=== PATIENT | male | born 1940 | race Caucasian/White ===

== ENCOUNTER 2019-02-08 15:01 | Emergency (ER) | payer MEDICARE, BC, OTHER ==
[~2019-02-08] VITALS: Ht 185.4 cm; Wt 75.0 kg
[~2019-02-08 15:01] MED LIST: BENEPOW7 PO; BENI5TAB3 PO; COUM1TAB17 PO; K-TA10TA2 PO; MAGN250T9 PO; ONE A DAY VITAMIN PO; PANT40TA3 PO; PROBCAP4 PO; STOOL SOFTNER PO; VITA2000 PO; [UNRECOGNIZED DRUG - OTHER] PO
[2019-02-08] MEDS ORDERED: CALC200T3 PO (15:19)
[2019-02-08] MEDS ORDERED: AMLO5TAB6 PO (15:19)
[2019-02-08] MEDS ORDERED: ADACEL/BOOSTRIX VACCINE (DIPHTH/PERTUSS/ACELL/TETANUS)0.5ML SYR (90715) IM ONE (15:45)
[2019-02-08] MEDS ORDERED: DERMABOND TOPICAL SKIN ADHESIVE TOP ONE (17:00)
[2019-02-08 17:23] VITALS: BP 178/99
--- NOTE | 2019-02-09 07:14 | REP ---
REASON: Trauma. PRIORS: None. 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 Degenerative disc space narrowing is seen at every level. Anterior and posterior osteophytic ridging is seen at every level but particularly C5-6 and C6-7. Vertebral body height and alignment is within normal limits. The facet joints are well aligned bilaterally. Degenerative facet and uncovertebral joint changes are present at every level bilaterally. There is no evidence of an acute fracture. There is no abnormal paraspinal soft-tissue swelling. IMPRESSION:Chronic changes. No acute fracture. Electronically Signed by Bogdan Mason DO 02/09/2019 09:16 A
--- NOTE | 2019-02-09 07:15 | REP ---
REASON FOR EXAM: Trauma. PRIORS: None. The ventricles and sulci are within normal limits for the patient's age of 79 years. Patchy diffuse lucency is seen throughout the deep cerebral white matter. There is no shift of the midline structures. There are no extra-axial fluid collections. There is no evidence of mass effect. The posterior fossa is within normal limits for the patient's age. There is no skull fracture. 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 Electronically Signed by Bogdan Mason DO 02/09/2019 09:16 A
[2019-02-09] MEDS ORDERED: ASPI81TA85 PO (10:50)
== END 2019-02-08 17:45 | disposition home or self-care (01) ==
LOC: EDUNIT# 15:01 → M ED 15:01 → EDBD 15:01 → M ED 17:45
DX: S09.90XA Unspecified injury of head, initial encounter (principal); S01.81XA Laceration without foreign body of other part of head, initial encounter; W01.0XXA Fall on same level from slipping, tripping and stumbling without subsequent striking against object, initial encounter; Y92.481 Parking lot as the place of occurrence of the external cause; K21.9 Gastro-esophageal reflux disease without esophagitis; Z79.899 Other long term (current) drug therapy; Z79.82 Long term (current) use of aspirin

== ENCOUNTER 2019-02-09 10:29 | Emergency (ER) | payer MEDICARE, BC, OTHER ==
[~2019-02-09] VITALS: Ht 185.4 cm; Wt 76.2 kg
[~2019-02-09 10:29] MED LIST changes: +AMLO5TAB6 PO; +CALC200T3 PO
[2019-02-09] MEDS ORDERED: ASPI81TA85 PO (10:50)
[2019-02-09 12:24] VITALS: BP 160/84
== END 2019-02-09 12:29 | disposition home or self-care (01) ==
LOC: M ED 10:29
DX: S00.12XD Contusion of left eyelid and periocular area, subsequent encounter (principal); S01.81XD Laceration without foreign body of other part of head, subsequent encounter; S80.02XD Contusion of left knee, subsequent encounter; X58.XXXD Exposure to other specified factors, subsequent encounter; Y92.89 Other specified places as the place of occurrence of the external cause; I10 Essential (primary) hypertension; K21.9 Gastro-esophageal reflux disease without esophagitis; Z79.899 Other long term (current) drug therapy; Z79.82 Long term (current) use of aspirin

== ENCOUNTER → 2023-04-06 | Outpatient (CLI) | payer MEDICARE, BC, OTHER ==
[~2023-04-06] MED LIST changes: +AMLO1TAB24 PO; -AMLO5TAB6 PO; +ASPI81TA86 PO; -BENI5TAB3 PO; -K-TA10TA2 PO; +OLME5TAB27 PO; +PANT40TA29 PO; -PANT40TA3 PO; +POTA-165 PO
== END ==
LOC: M PLAIMG 09:46
PROVIDERS: ATTEND Psychiatry & Neurology Neurology
DX: Z53.9 Procedure and treatment not carried out, unspecified reason (principal)

== ENCOUNTER 2023-11-28 17:00 | Inpatient (IN) | payer MEDICARE, BC ==
[~2023-11-28] VITALS: Ht 185.4 cm; Wt 63.7 kg
[2023-11-28] MEDS: LIDOCAINE 5% (LIDODERM) PATCH TD ONE (17:30)
[2023-11-28] MEDS: ONDANSETRON 4MG 2ML VIAL IV ONE (17:46)
[2023-11-28] MEDS: ACETAMINOPHEN *IV* 1,000 MG in IV 1 EA IV ONE (17:47)
[2023-11-28] MEDS: MORPHINE 2 MG/ML 1ML VIAL IV PRN (17:48)
[2023-11-28 17:51] LABS: BASO # 0.1 10^3/uL (0.0-0.2); BASO % 0.6 % (0.0-1.0); EOS # 0.1 10^3/uL (0.0-0.5); EOS % 1.6 % (0.0-3.0); HEMATOCRIT 35.7 % (42.0-52.0); HEMOGLOBIN 11.7 g/dl (13.5-17.5); LYMPH # 1.1 10^3/uL (1.5-5.0); LYMPH % 14.6 % (24.0-44.0); MEAN CORPUSCULAR HEMOGLOBIN 30.4 pg (27.0-33.0); MEAN CORPUSCULAR HGB CONC 32.8 g/dl (32.0-36.5); MEAN CORPUSCULAR VOLUME 92.7 fl (80.0-96.0); MONO # 0.9 10^3/uL (0.0-0.8); MONO % 11.9 % (2.0-8.0); NEUTROPHILS # 5.5 10^3/uL (1.5-8.5); PLATELET COUNT, AUTOMATED 145 10^3/uL (150-450); RED BLOOD COUNT 3.85 10^6/uL (4.30-6.10); WHITE BLOOD COUNT 7.7 10^3/uL (4.0-10.0)
[2023-11-28 18:23] LABS: BLOOD UREA NITROGEN 24 MG/DL (9-23); CALCIUM LEVEL 8.3 MG/DL (8.3-10.6); CARBON DIOXIDE LEVEL 29 MMOL/L (20-31); CHLORIDE LEVEL 104 MMOL/L (98-107); CREATININE FOR GFR 0.65 MG/DL (0.70-1.30); GLOMERULAR FILTRATION RATE > 60.0 (>35); GLUCOSE, FASTING 105 MG/DL (74-106); POTASSIUM SERUM 3.3 MMOL/L (3.5-5.1); SODIUM LEVEL 138 MMOL/L (136-145)
[2023-11-28] MEDS ORDERED: D3 S1CAP3 PO (19:31)
[2023-11-28] MEDS ORDERED: POTA1TAB23 PO (19:31)
[2023-11-28] MEDS ORDERED: CULT10CA4 PO (19:31)
[2023-11-28] MEDS ORDERED: ASPI81TA26 PO (19:31)
[2023-11-28] MEDS ORDERED: ROPI1TAB73 PO (19:31)
[2023-11-28] MEDS ORDERED: HOME MED LIST COMPLETE! XX SCH (19:45)
[2023-11-28] MEDS ORDERED: MOM 30ML SUSPENSION UDC PO PRN (23:55)
[2023-11-29] MEDS: POTASSIUM CHLORIDE 10% LIQ 20MEQ/15ML UDC PO ONE (01:24)
[2023-11-29] MEDS: KCL 10MEQ/100ML SWI (KRUN) 10 MEQ in IV 1 EA IV SCH (01:25)
[2023-11-29 02:12] VITALS: BP 128/84; TEMP 97.2; O2SAT 95
[2023-11-29] MEDS ORDERED: PILL CUTTER 1 EACH XX PRN (02:25)
[2023-11-29] MEDS: MORPHINE 2 MG/ML 1ML VIAL IV PRN (02:48)
[2023-11-29] MEDS: ACETAMINOPHEN TAB 650MG DOSE (2X325MG) PO PRN (06:00)
[2023-11-29] MEDS: HEPARIN SOD (PORCINE) 5000UNITS/ML 1ML VIAL/SYRINGE SC SCH (06:01)
[2023-11-29 07:06] LABS: HEMATOCRIT 35.3 % (42.0-52.0); HEMOGLOBIN 11.4 g/dl (13.5-17.5); MEAN CORPUSCULAR HEMOGLOBIN 29.9 pg (27.0-33.0); MEAN CORPUSCULAR HGB CONC 32.3 g/dl (32.0-36.5); MEAN CORPUSCULAR VOLUME 92.7 fl (80.0-96.0); PLATELET COUNT, AUTOMATED 141 10^3/uL (150-450); RED BLOOD COUNT 3.81 10^6/uL (4.30-6.10); WHITE BLOOD COUNT 5.8 10^3/uL (4.0-10.0)
[2023-11-29 07:38] LABS: BLOOD UREA NITROGEN 21 MG/DL (9-23); CALCIUM LEVEL 8.4 MG/DL (8.3-10.6); CARBON DIOXIDE LEVEL 31 MMOL/L (20-31); CHLORIDE LEVEL 103 MMOL/L (98-107); CREATININE FOR GFR 0.64 MG/DL (0.70-1.30); GLOMERULAR FILTRATION RATE > 60.0 (>35); GLUCOSE, FASTING 91 MG/DL (74-106); POTASSIUM SERUM 4.4 MMOL/L (3.5-5.1); SODIUM LEVEL 138 MMOL/L (136-145)
[2023-11-29] MEDS: DOCUSATE SODIUM 100MG CAPSULE PO SCH (09:00)
[2023-11-29] MEDS: rOPINIRole 1MG TAB PO SCH (09:09)
[2023-11-29] MEDS: ASPIRIN 81MG ENTERIC TABLET PO SCH (09:09)
[2023-11-29] MEDS: predniSONE 20 MG TAB PO SCH (11:22)
[2023-11-29] MEDS: methocarbamoL 500 MG TAB PO SCH (11:22)
[2023-11-29 12:00] VITALS: BP 129/81; TEMP 97.2; O2SAT 94
[2023-11-29] MEDS: oxyCODONE 5MG TAB PO PRN (13:08)
[2023-11-29] MEDS: LIDOCAINE 5% (LIDODERM) PATCH TD SCH (14:03)
[2023-11-29] MEDS: ACETAMINOPHEN 500 MG TAB PO SCH (17:00)
[2023-11-29 20:00] VITALS: BP 125/81; TEMP 97; O2SAT 94
[2023-11-30 04:00] VITALS: BP 119/83; TEMP 97; O2SAT 96
[2023-11-30] MEDS ORDERED: LIDO5DIS41 TOP (10:01)
[2023-11-30] MEDS ORDERED: MAGN200T10 PO (10:06)
[2023-11-30] MEDS: LIDOCAINE 5% (LIDODERM) PATCH TD SCH (11:20)
[2023-11-30 11:50] VITALS: BP 135/73; TEMP 97.3; O2SAT 96
[2023-11-30 21:40] VITALS: BP 101/60; TEMP 97.5; O2SAT 94
[2023-12-01 03:50] VITALS: BP 156/82; TEMP 97.3; O2SAT 94
[2023-12-01 05:13] VITALS: BP 128/71
[2023-12-01 12:00] VITALS: BP 126/74; TEMP 97.2; O2SAT 95
[2023-12-01 20:00] VITALS: BP 119/69; TEMP 97.3; O2SAT 93
[2023-12-02 04:16] VITALS: BP 120/67; TEMP 97.7; O2SAT 94
[2023-12-02 10:45] LABS: ALBUMIN 3.1 G/DL (3.2-5.2); ALKALINE PHOSPHATASE 107 U/L (46-116); ALT/SGPT 15 U/L (7.0-40); AST/SGOT 15 U/L (<34); BILIRUBIN,TOTAL 0.6 MG/DL (0.3-1.2); BLOOD UREA NITROGEN 32 MG/DL (9-23); CALCIUM LEVEL 8.6 MG/DL (8.3-10.6); CARBON DIOXIDE LEVEL 34 MMOL/L (20-31); CHLORIDE LEVEL 105 MMOL/L (98-107); CREATININE FOR GFR 0.76 MG/DL (0.70-1.30); GLOMERULAR FILTRATION RATE > 60.0 (>35); GLUCOSE, FASTING 143 MG/DL (74-106); POTASSIUM SERUM 3.7 MMOL/L (3.5-5.1); SODIUM LEVEL 142 MMOL/L (136-145); TOTAL PROTEIN 5.8 G/DL (5.7-8.2)
[2023-12-02 12:00] VITALS: BP 139/73; TEMP 97; O2SAT 95
[2023-12-02 20:21] VITALS: BP 135/87; TEMP 97.3; O2SAT 96
[2023-12-03 03:55] VITALS: BP 138/86; TEMP 97.3; O2SAT 93
[2023-12-03 12:00] VITALS: BP 135/82; TEMP 97.5; O2SAT 96
[2023-12-03 20:00] VITALS: BP 139/82; TEMP 97.5; O2SAT 96
[2023-12-04 04:00] VITALS: BP 124/68; TEMP 97; O2SAT 96
[2023-12-04 04:30] VITALS: BP 128/79; TEMP 98.4; O2SAT 96
[2023-12-04 12:30] VITALS: BP 132/87; TEMP 97.7; O2SAT 96
[2023-12-04 20:00] VITALS: BP 128/76; TEMP 97.3; O2SAT 96
[2023-12-05 04:00] VITALS: BP 128/76; TEMP 97.3; O2SAT 97
[2023-12-05 12:00] VITALS: BP 131/78; TEMP 97; O2SAT 95
[2023-12-05] MEDS ORDERED: MIRALAX *UNIT DOSE* 17GM PACKET PO PRN (14:10)
[2023-12-05] MEDS: BISACODYL 10MG SUPP PR ONE (15:57)
[2023-12-05 20:00] VITALS: BP 127/76; TEMP 97.2; O2SAT 96
[2023-12-05] MEDS: SENOKOT S TAB PO SCH (21:10)
[2023-12-06 04:00] VITALS: BP 127/76; TEMP 97.2; O2SAT 95
[2023-12-06] MEDS: oxyCODONE 5MG TAB PO PRN (06:29)
[2023-12-06 12:00] VITALS: BP 115/67; TEMP 97.3; O2SAT 95
[2023-12-06 19:11] VITALS: BP 150/82; TEMP 97.2; O2SAT 97
[2023-12-07 04:00] VITALS: BP 150/84; TEMP 97.5; O2SAT 95
[2023-12-07] MEDS: oxyCODONE 15MG CR TAB PO SCH (08:19)
[2023-12-07] MEDS: BISACODYL 10MG SUPP PR PRN (10:50)
[2023-12-07 12:00] VITALS: BP 126/77; TEMP 97.2; O2SAT 96
[2023-12-07] MEDS ORDERED: NALOXONE INJ 0.4MG/1ML VIAL IV PRN (18:20)
[2023-12-07 19:44] VITALS: BP 117/75; TEMP 97.5; O2SAT 95
[2023-12-08] MEDS: oxyCODONE 5MG TAB PO PRN (02:01)
[2023-12-08 04:00] VITALS: BP 122/70; TEMP 97.5; O2SAT 95
[2023-12-08 12:19] VITALS: BP 104/71; TEMP 97.2; O2SAT 95
[2023-12-08] MEDS: LIDOCAINE 5% (LIDODERM) PATCH TD SCH (14:40)
[2023-12-08 17:25] VITALS: BP 178/90
[2023-12-08 18:14] VITALS: BP 138/70
[2023-12-08 20:00] VITALS: BP 127/73; TEMP 97.3; O2SAT 95
[2023-12-09 04:00] VITALS: BP 108/60; TEMP 97.5; O2SAT 95
[2023-12-09 20:00] VITALS: BP 113/66; TEMP 97; O2SAT 94
[2023-12-10 04:11] VITALS: BP 106/61; TEMP 97; O2SAT 94
[2023-12-10 12:00] VITALS: BP 147/76; TEMP 97.2; O2SAT 96
[2023-12-10 19:43] VITALS: BP 149/90; TEMP 97.2; O2SAT 96
[2023-12-11 04:10] VITALS: BP 128/69; TEMP 97.5; O2SAT 99
[2023-12-11 12:00] VITALS: BP 131/80; TEMP 97.2; O2SAT 95
[2023-12-11 19:29] VITALS: BP 154/93; TEMP 97.2; O2SAT 94
[2023-12-11] MEDS: ACETAMINOPHEN 500 MG TAB PO SCH (21:23)
[2023-12-12 04:00] VITALS: BP 103/68; TEMP 97.3; O2SAT 93
[2023-12-12] MEDS ORDERED: OXYC-517 PO (10:43)
[2023-12-12] MEDS ORDERED: METH-1164 PO (10:43)
[2023-12-12] MEDS ORDERED: MIRA33506 PO (10:43)
[2023-12-12] MEDS ORDERED: SENN-52 PO (10:43)
[2023-12-12] MEDS ORDERED: ACET-683 PO (10:43)
[2023-12-12] MEDS ORDERED: OXYC15TA66 PO (10:43)
[2023-12-12 12:00] VITALS: BP 147/75; TEMP 97.3; O2SAT 96
== END 2023-12-12 15:16 | DRG 552 ==
LOC: EDBD 17:00 → M ED 17:00 → M ED INP 11-29 → M MSPAV 11-29 02:07
PROVIDERS: ADMIT Family Medicine; ATTEND Internal Medicine
DX: S32.040A Wedge compression fracture of fourth lumbar vertebra, initial encounter for closed fracture (principal); S22.080A Wedge compression fracture of T11-T12 vertebra, initial encounter for closed fracture; S32.050A Wedge compression fracture of fifth lumbar vertebra, initial encounter for closed fracture; K21.9 Gastro-esophageal reflux disease without esophagitis; E87.6 Hypokalemia; M48.061 Spinal stenosis, lumbar region without neurogenic claudication; G20.A1 Parkinson's disease without dyskinesia, without mention of fluctuations; M54.30 Sciatica, unspecified side; G89.29 Other chronic pain; Z66 Do not resuscitate; Z79.82 Long term (current) use of aspirin; Z86.718 Personal history of other venous thrombosis and embolism; Z79.899 Other long term (current) drug therapy; Z95.828 Presence of other vascular implants and grafts; X50.1XXA Overexertion from prolonged static or awkward postures, initial encounter; Y92.9 Unspecified place or not applicable; Y93.9 Activity, unspecified; Y99.9 Unspecified external cause status